=== PATIENT | female | born 1940 | race Caucasian/White ===

== ENCOUNTER 2019-02-05 15:26 | Emergency (ER) | payer MEDICARE, BC ==
[~2019-02-05] VITALS: Ht 172.7 cm; Wt 70.0 kg
[2019-02-05 16:11] VITALS: BP 136/44
--- NOTE | 2019-02-05 17:27 | NUR ---
PT TO CT
== END 2019-02-05 18:46 | disposition home or self-care (01) ==
LOC: ER 15:26
DX: S00.03XA Contusion of scalp, initial encounter (principal); Z98.890 Other specified postprocedural states; W18.09XA Striking against other object with subsequent fall, initial encounter; Y93.89 Activity, other specified; Y92.89 Other specified places as the place of occurrence of the external cause; Y99.8 Other external cause status
CPT/HCPCS: 70450; 99284

== ENCOUNTER 2021-05-26 14:25 | Emergency (ER) | payer MEDICARE, BC ==
[~2021-05-26] VITALS: Ht 172.7 cm; Wt 170.0 kg
[2021-05-26] MEDS ORDERED: ALBUTEROL INHALER 1 PUFF/90 MCG INHALER IH PRN (14:45)
[2021-05-26] MEDS ORDERED: CASIRIVIMAB/IMDEVIMAB inject. 10 ML in normal saline 100ml IV soln 100 ML IV ONE (17:05)
[2021-05-26] MEDS ORDERED: AMOX-422 PO (17:13)
[2021-05-26] MEDS ORDERED: DEXAMETHASONE 6 MG TABLET PO SCH (17:55)
[2021-05-26] MEDS ORDERED: ALBU6.7H9 INH (20:56)
[2021-05-26] MEDS ORDERED: DEXA6TAB PO (20:56)
[2021-05-26 21:10] VITALS: BP 115/58
== END 2021-05-26 21:11 | disposition home or self-care (01) ==
LOC: ER 14:25
DX: U07.1 COVID-19 (principal); R05.9 Cough, unspecified; R50.9 Fever, unspecified; R00.0 Tachycardia, unspecified; Z90.89 Acquired absence of other organs; Z79.899 Other long term (current) drug therapy
CPT/HCPCS: 71045; 87635; 99284; C9803; M0243; Q0244

== ENCOUNTER 2021-05-28 15:10 | Emergency (ER) | payer MEDICARE, BC ==
[~2021-05-28] VITALS: Ht 172.7 cm; Wt 80.0 kg
[~2021-05-28 15:10] MED LIST: ALBU6.7H9 INH; DEXA6TAB PO
[2021-05-28 16:43] VITALS: BP 97/55
== END 2021-05-28 16:47 | disposition home or self-care (01) ==
LOC: ER 15:11
DX: U07.1 COVID-19 (principal); R06.02 Shortness of breath; Z90.89 Acquired absence of other organs; Z79.899 Other long term (current) drug therapy
CPT/HCPCS: 99281